=== PATIENT | female | born 1995 | race Caucasian/White ===

== ENCOUNTER → 2017-01-04 | Outpatient (CLI) | payer OTHER | LOC: COL.RAD 10:07 | DX: R10.11 Right upper quadrant pain (principal); R58 Hemorrhage, not elsewhere classified | CPT/HCPCS: A9537 ==

== ENCOUNTER 2019-06-16 09:50 | Outpatient (CLI) | payer OTHER, BC ==
[~2019-06-16] VITALS: Ht 177.8 cm; Wt 196.8 kg
[2019-06-16 10:00] VITALS: BP 144/75; PULSE 129; TEMP 97.6
[2019-06-16] MEDS ORDERED: GLUCOPHAGE500 MG/TAB PO (10:28)
[2019-06-16] MEDS ORDERED: CONCEPT DHA1 CAP PO (10:29)
[2019-06-16 10:30] VITALS: BP 149/82; PULSE 125
--- NOTE | 2019-06-16 10:38 | NUR ---
1000 PATIENT HERE FOR COMPLAINTS OF LEAKING LARGE AMOUNT MUCUS. EFM ON [address] BABY VERY ACTIVE. GOOD ACCELERATIONS NOTED. NO CONTRACTIONS FELT BY PATIENT. SVE /-2 BULGY BAG. NOTED. AMNIOTRACE NEGATIVE. AMNIOSURE ALSO DONE AND SENT TO LAB. DR ODELL CALLED AND UPDATED AND PLANS TO TRANSFER TO [facility]. DIGITAL CARTOGRAPHIC TECHNICIAN UPDATED.
[2019-06-16 11:12] VITALS: BP 149/66; PULSE 114
--- NOTE | 2019-06-16 11:15 | NUR ---
DR ODELL HERE BEDSIDE ULTRASOUND FOR BREECH PRESENTATION COMFIRMED. SVE UNCHANGED. AMNIOSURE RESULTS NEGATIVE. BETAMETHASONE 12MG IM IN LEFT BUTTOCKS AT THIS TIME AND LR HUNG PER DR SAN. TRANSFER CONSENTS SIGNED AT THIS TIME.
[2019-06-16 11:18] LABS: BASO % 0.2 % (0.0-2.0); EOS # 0.1 (0.0-0.7); EOS % 0.3 % (0-4.0); GRAN # 12.9 (1.4-6.5); GRAN % 80.7 % (42.2-75.2); HEMATOCRIT 37.8 % (37.0-47.0); HEMOGLOBIN 12.7 g/dl (12.5-16.0); LYMPH # 1.8 (1.2-3.4); LYMPH % 11.3 % (20.0-51.0); MEAN CELL VOLUME 89 fl (80.0-100.0); MEAN CORPUSCULAR HEMOGLOBIN 30 pg (27.0-31.0); MEAN CORPUSCULAR HGB CONC 34 g/dl (33.0-37.0); MEAN PLATELET VOLUME 10.3 fl (7.4-10.4); MONO # 1.1 (0.1-0.6); MONO % 6.7 % (1.7-9.3); PLATELET COUNT 247 K/mm3 (130-400); RED BLOOD COUNT 4.24 M/mm3 (4.10-5.30); REDCELL DISTRIBUTION WIDTH-CV 13.6 % (11.5-14.5)
[2019-06-16 11:28] LABS: ALBUMIN 3.7 gm/dL (3.5-5.0); BILIRUBIN,TOTAL 0.2 mg/dL (0.0-1.0); CALCIUM 9.6 mg/dL (8.4-10.2); CREATININE, serum 0.53 (0.52-1.25); POTASSIUM 4.1 mmol/L (3.4-5.0); TOTAL PROTEIN 7.1 gm/dL (6.4-8.2)
[2019-06-16 11:50] VITALS: BP 144/72; PULSE 116
--- NOTE | 2019-06-16 12:10 | NUR ---
1150 EMS HERE REPORT GIVEN AT THIS TIME. PATIENT AMBULATES TO EMS CART AT THIS TIME AND DISMISSED WITH EMS STAFF. PATIENT DENIES NEEDS AT THIS TIME. 1210 MED CALLED AND REPORT GIVEN TO JOSSY RN AT THIS TIME.
== END 2019-06-16 11:50 ==
LOC: LDRO 09:50 → LDR 10:31 → LDRO 11:50
PROVIDERS: Obstetrics & Gynecology
DX: O42.913 Preterm premature rupture of membranes, unspecified as to length of time between rupture and onset of labor, third trimester (principal); Z3A.35 35 weeks gestation of pregnancy
CPT/HCPCS: OP; J0702; J7120